=== PATIENT | male | born 1935 | race Caucasian/White ===

== ENCOUNTER 2017-10-11 14:16 | Observation (INO) ==
[2017-10-11] MEDS ORDERED: Sodium Chlor 0.9% Inj 500 ML IV.SIG ONE (14:35)
--- NOTE | 2017-10-11 14:44 | ED ---
HPI General Chief complaint: Syncope Stated complaint: Syncope Time Seen by Provider: 10/11/17 14:20 Source: patient and RN notes reviewed Mode of arrival: EMS Limitations: no limitations History of Present Illness HPI narrative: 82-year-old male presents to the emergency department via EMS for evaluation after a syncopal episode. Patient states he went to work in the [place]. He started to feel dizzy and went and sat down. He then felt better and walked back when he had a syncopal episode. He denies any history of syncope. Patient states he felt lightheaded and dizzy. He reports history of hypertension, atrial fibrillation, "leaky valve". He is on Coumadin. He states that he is using internal heart group. Patient denies any chest pain. No headache. He is unsure if he hit his head. At this time, he denies any symptoms. Moderate severity. Relieving factors: none Exacerbating factors: none Associated symptoms: denies other symptoms Related Data Allergies Allergy/AdvReac Type Severity Reaction Status Date / Time No Known Allergies Allergy Unverified 10/11/17 14:35 Review of Systems ROS: all other systems reviewed are negative PMFSH Medical History Medical History Atrial fibrillation (Acute) Leaky heart valve (Acute) Syncope (Acute) Surgical History Surgical History H/O knee surgery (Acute) Social History Social History Substance History: No History of Abuse Second Hand Smoke Exposure: No Smoking Status: Former smoker How Often Do You Have a Drink Containing Alcohol: 2 to 4 times a month Recent Travel in [facility] within the Last 8 Weeks: No Recent Out of Country Travel within the Last 8 Weeks: No Exam Narrative Exam Narrative: GENERAL: Well-nourished, well-developed elderly male patient, afebrile SKIN: Focused skin assessment warm/dry. No laceration HEAD: Normocephalic. Atraumatic EYES: No scleral icterus. No injection or drainage. PERRLA. EOM intact ENT: Mucosa pink and moist. No erythema or exudates. No uvular edema. No uvular , palatal, or tonsillar deviation. Airway patent. Nasal turbinates appear normal without nasal blood, purulent drainage or septal hematoma. Bilateral tympanic membranes clear without erythema or perforation. NECK: Supple, trachea midline. No JVD or lymphadenopathy. CARDIOVASCULAR: Rhythm is slightly bradycardic with heart rate in the 50s, irregular rhythm without murmurs, gallops, or rubs. RESPIRATORY: Breath sounds equal bilaterally. No accessory muscle use. Lung sounds are clear to auscultation GASTROINTESTINAL: Abdomen soft, non-tender, nondistended. MUSCULOSKELETAL: No cyanosis, or edema. Bilateral upper and lower extremity strength 5/5. All extremities are neurovascularly intact BACK: Nontender without obvious deformity. No CVA tenderness. NEUROLOGICAL: Awake and alert. Cranial nerves II through XII intact. Motor and sensory grossly within normal limits. Five out of 5 muscle strength in all muscle groups. Normal speech. Finger to nose is normal bilaterally. Heel to joe is normal bilaterally. Course Initial Documented Vital Signs Temperature 97.7 F 10/11/17 14:33 Pulse Rate 57 L 10/11/17 14:33 Respiratory Rate 18 10/11/17 14:33 Blood Pressure 118/68 10/11/17 14:33 Pulse Oximetry 96 10/11/17 14:33 Last Documented Vital Signs Temperature 97.7 F 10/11/17 14:33 Pulse Rate 66 10/11/17 14:43 Respiratory Rate 18 10/11/17 14:43 Blood Pressure 114/62 10/11/17 14:43 Pulse Oximetry 97 10/11/17 14:43 Medical Decision Making MDM Narrative Medical decision making narrative: 82-year-old male presents to the emergency department via EMS for evaluation of dizziness and syncopal episode. EKG, CBC, CMP, Magnesium, CK, troponin, PTT, PT/INR, UA, chest x-ray, CT of the brain are ordered and pending. Patient is given 500 mL NS IV bolus. Orthostatic VS are ordered. EKG shows atrial fibrillation, heart rate 64, t wave changes. This was read and interpreted by my attending physician, Dr. Jasso. CBC shows leukocytosis of 11.3. CMP shows BUN 25, creatinine of 1.64. CK is 86. Troponin is less than 0.02. Magnesium is 2.0. PTT is 29.2. PT/INR is 17.1/ 1.7. Chest x-ray shows minimal left basilar airspace disease and associated volume loss likely reflecting atelectasis. CT of the brain shows no acute intracranial abnormality. Patient will be admitted for observation for syncope. Medical Screen Exam Complete: Yes Emergency Medical Condition: Yes Differential Diagnosis Differential Diagnosis: syncope vs. ACS vs. intracranial hemorrhage vs. CVA vs. electrolyte abnormality Lab Data Result diagrams: 10/11/17 15:00 10/11/17 15:00 Lab Results 10/11/17 10/11/17 10/11/17 Range/Units 09:44 15:00 15:00 WBC 11.3 H (4.0-11.0) th/mm3 RBC 3.53 L (4.50-5.90) mil/mm3 Hgb 11.5 L (13.0-17.0) gm/dL Hct 34.2 L (39.0-51.0) % MCV 97.0 (80.0-100.0) fL MCH 32.5 (27.0-34.0) pg MCHC 33.5 (32.0-36.0) % RDW 14.5 (11.6-17.2) % Plt Count 200 (150-450) th/mm3 MPV 8.8 (7.0-11.0) fL Neut % (Auto) 80.3 H (16.0-70.0) % Lymph % (Auto) 9.9 (9.0-44.0) % Mills % (Auto) 8.4 H (0.0-8.0) % Eos % (Auto) 1.1 (0.0-4.0) % Baso % (Auto) 0.3 (0.0-2.0) % Neut # (Auto) 9.1 H (1.8-7.7) th/mm3 Lymph # (Auto) 1.1 (1.0-4.8) th/mm3 Mills # (Auto) 1.0 H (0.0-0.9) th/mm3 Eos # (Auto) 0.1 (0.0-0.4) th/mm3 Baso # (Auto) 0.0 (0.0-0.2) th/mm3 WBC Differential . Differential Comment Auto diff final PT 17.7 H (9.8-11.6) sec INR 1.7 Ratio APTT 29.2 (24.3-30.1) sec Sodium 142 (136-145) meq/L Potassium 4.3 (3.5-5.1) meq/L Chloride 111 H (98-107) meq/L Carbon Dioxide 24.7 (21.0-32.0) meq/L Anion Gap 6 (5-15) meq/L BUN 25 H (7-18) mg/dL Creatinine 1.64 H (0.60-1.30) mg/dL Estimated GFR 41 L (>89) mL/min POC Glucose (68-110) mg/dl Random Glucose 92 (74-106) mg/dL Calcium 8.1 L (8.5-10.1) mg/dL Magnesium 2.0 (1.5-2.5) mg/dL Total Bilirubin 0.2 (0.2-1.0) mg/dL AST 21 (15-37) U/L ALT 21 (12-78) U/L Alkaline Phosphatase 63 (45-117) U/L Total Creatine Kinase (39-308) U/L Troponin I Less than 0.02 L (0.02-0.05) ng/mL Total Protein 6.9 (6.4-8.2) g/dL Albumin 3.4 (3.4-5.0) g/dL 10/11/17 10/11/17 Range/Units 15:00 15:12 WBC (4.0-11.0) th/mm3 RBC (4.50-5.90) mil/mm3 Hgb (13.0-17.0) gm/dL Hct (39.0-51.0) % MCV (80.0-100.0) fL MCH (27.0-34.0) pg MCHC (32.0-36.0) % RDW (11.6-17.2) % Plt Count (150-450) th/mm3 MPV (7.0-11.0) fL Neut % (Auto) (16.0-70.0) % Lymph % (Auto) (9.0-44.0) % Mills % (Auto) (0.0-8.0) % Eos % (Auto) (0.0-4.0) % Baso % (Auto) (0.0-2.0) % Neut # (Auto) (1.8-7.7) th/mm3 Lymph # (Auto) (1.0-4.8) th/mm3 Mills # (Auto) (0.0-0.9) th/mm3 Eos # (Auto) (0.0-0.4) th/mm3 Baso # (Auto) (0.0-0.2) th/mm3 WBC Differential Differential Comment PT (9.8-11.6) sec INR Ratio APTT (24.3-30.1) sec Sodium (136-145) meq/L Potassium (3.5-5.1) meq/L Chloride (98-107) meq/L Carbon Dioxide (21.0-32.0) meq/L Anion Gap (5-15) meq/L BUN (7-18) mg/dL Creatinine (0.60-1.30) mg/dL Estimated GFR (>89) mL/min POC Glucose 112 H (68-110) mg/dl Random Glucose (74-106) mg/dL Calcium (8.5-10.1) mg/dL Magnesium (1.5-2.5) mg/dL Total Bilirubin (0.2-1.0) mg/dL AST (15-37) U/L ALT (12-78) U/L Alkaline Phosphatase (45-117) U/L Total Creatine Kinase 86 (39-308) U/L Troponin I (0.02-0.05) ng/mL Total Protein (6.4-8.2) g/dL Albumin (3.4-5.0) g/dL Imaging Data Radiologist's impression: Chest X-Ray 10/11/17 14:35 CONCLUSION: 1. Minimal left basilar airspace disease and associated volume loss likely reflecting atelectasis. Head CT 10/11/17 14:35 CONCLUSION: 1. Senescent changes with moderate periventricular ischemic white matter demyelination. 2. No acute intracranial abnormality. . Discharge Plan Discharge Disposition Patient Disposition: 30 Still Patient Discharge Details Diagnosis: Syncope Physicians Team ED Provider: Orville Jasso ED Midlevel Provider: Brunilda Mcgraw Status ED Status: With Doctor
[2017-10-11 15:20] LABS: Baso % (Auto) 0.3 % (0.0-2.0); Eos # (Auto) 0.1 th/mm3 (0.0-0.4); Eos % (Auto) 1.1 % (0.0-4.0); Hematocrit 34.2 % (39.0-51.0); Hemoglobin 11.5 gm/dL (13.0-17.0); Lymph # (Auto) 1.1 th/mm3 (1.0-4.8); Lymph % (Auto) 9.9 % (9.0-44.0); Mean Corpuscular HGB Conc 33.5 % (32.0-36.0); Mean Corpuscular Hemoglobin 32.5 pg (27.0-34.0); Mean Platelet Volume 8.8 fL (7.0-11.0); Mono % (Auto) 8.4 % (0.0-8.0); Neut # (Auto) 9.1 th/mm3 (1.8-7.7); Neut % (Auto) 80.3 % (16.0-70.0); Platelet Count 200 th/mm3 (150-450); Red Blood Count 3.53 mil/mm3 (4.50-5.90); Red Cell Distribution Width 14.5 % (11.6-17.2); White Blood Count 11.3 th/mm3 (4.0-11.0)
--- NOTE | 2017-10-11 15:24 | XR ---
EXAM DATE: 10/11/2017 2:59 PM EDT AGE/SEX: 82 years / Male INDICATIONS: Syncope. CLINICAL DATA: This is the patient's initial encounter. Patient reports that signs and symptoms have been present for 1 day and indicates a pain score of 0/10. MEDICAL/SURGICAL HISTORY: . Patient diagnosed with A fib and leaky heart valve ten years ago. P atient takes Warfarin and a medication to lower heart rate taken every 24 hours. (Patient cannot shawn mber the name of the drug) Patient fainted today but slumped to the floor with no injury. No prior l maddi issues, non smoker. None. COMPARISON: No prior exams available for comparison. FINDINGS: Minimal left basilar airspace disease and subtle elevation the left hemidiaphragm. The cardiomediasti nal contours are unremarkable. Osseous structures are intact. CONCLUSION: 1. Minimal left basilar airspace disease and associated volume loss likely reflecting atelectasis. Electronically signed by: Barney Parker MD 10/11/2017 3:23 PM EDT
[2017-10-11 15:27] LABS: Activated Partial Thrombo Time 29.2 sec (24.3-30.1); INR 1.7 Ratio; Prothrombin Time 17.7 sec (9.8-11.6)
[2017-10-11 15:38] LABS: Alanine Aminotransferase 21 U/L (12-78); Albumin 3.4 g/dL (3.4-5.0); Anion Gap 6 meq/L (5-15); Aspartate Aminotransferase 21 U/L (15-37); Blood Urea Nitrogen 25 mg/dL (7-18); Calcium 8.1 mg/dL (8.5-10.1); Carbon Dioxide 24.7 meq/L (21.0-32.0); Chloride 111 meq/L (98-107); Glomerular Filtration Rate 41 mL/min (>89); Glucose,Random 92 mg/dL (74-106); Potassium 4.3 meq/L (3.5-5.1); Sodium 142 meq/L (136-145)
[2017-10-11 15:42] LABS: Alkaline Phosphatase 63 U/L (45-117); Total Protein 6.9 g/dL (6.4-8.2)
--- NOTE | 2017-10-11 16:23 | CT ---
EXAM DATE: 10/11/2017 4:05 PM EDT AGE/SEX: 82 years / Male INDICATIONS: Possible syncopal episode today. CLINICAL DATA: This is the patient's initial encounter. Patient reports that signs and symptoms have been present for 1 day and indicates a pain score of 3/10. MEDICAL/SURGICAL HISTORY: None. None. RADIATION DOSE: 34.52 CTDI (mGy) COMPARISON: No prior exams available for comparison. TECHNIQUE: CT of the head without contrast. Using automated exposure control and adjustment of the mA and/or kV according to patient size, radiation dose was kept as low as reasonably achievable to ob tain optimal diagnostic quality images. DICOM format image data is available electronically for revi ew and comparison. FINDINGS: Cerebrum: Moderate diffuse cerebral atrophy. The ventricles are normal for degree of atrophy. Mild-t o-moderate periventricular white matter hypodensities. No evidence of midline shift, mass lesion, hem orrhage or acute infarction. No extraaxial fluid collections are seen. Posterior Fossa: The cerebellum and brainstem are intact. The 4th ventricle is midline. The cerebe llopontine angle is unremarkable. Extracranial: The visualized portion of the orbits is intact. Skull: The calvaria is intact. No evidence of skull fracture. CONCLUSION: 1. Senescent changes with moderate periventricular ischemic white matter demyelination. 2. No acute intracranial abnormality. . Electronically signed by: Barney Parker MD 10/11/2017 4:22 PM EDT
[2017-10-11] MEDS ORDERED: Warfarin Consult Pharmacy OTHER ONE (17:58)
--- NOTE | 2017-10-11 18:05 | P.HP ---
History of Present Illness Service: [facility] Primary Care Physician: Dr graham Chief Complaint: "Dizziness, passed out" History of Present Illness: Patient is an 82-year-old male with past medical history of atrial fibrillation on Coumadin, HTN, HLD, "leaky valve" who initially came by ambulance status post syncope. 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 Reports that he was not feeling well and had sat down for a few minutes. States that after sitting down he felt a lot better and thinking that he is able to continue with his work. He was standing and he felt dizzy, after which he woke up on the ground. He also reported vomiting while he was laying on the floor. Does not know if he hit his head. Patient states that he has no change in any of his medications. States that he takes a medication to slow down his heart rate. States that previously he had syncopal episode wherein his heart rate went down to the 20s because he took the medication twice. States the facility is in air conditioner. However he also reports that yesterday he was working in his yard and has not drink enough water throughout the day. Patient states that he has been drinking coffee all day without drinking water. Otherwise, states he is feeling better now. Denies numbness and tingling of extremities. Denies visual changes, unilateral weakness. Denies pain and discomfort. Denies SOB/ dyspnea. Denies chest pain, palpitations, headaches, dizziness. Denies fevers, chills, n/v/d. Denies dysuria. CT scan of the head showed senescent changes with moderate periventricular ischemic white matter demyelination. No acute intracranial abnormality Chest x-ray showed minimal left basilar airspace disease and associated volume loss likely reflecting atelectasis. EKG reviewed atrial fibrillation, rate of 64. QTc 310 Initial vital signs pulse rate of 57, 118/68, 97.7, O2 sat 96% - Diagnosis (1) Syncope Review of Systems All other systems reviewed negative except as stated in [facility] - History History Provided By: Patient, Insole Rasper / EMT - Medical History Medical History: Medical History (Last Updated 10/11/17 @ 17:39 by DYLAN Tim) Atrial fibrillation HLD (hyperlipidemia) HTN (hypertension) Leaky heart valve Syncope - Surgical History Surgical History: Surgical History (Last Updated 10/11/17 @ 14:41 by Kaelyn Baez H/O knee surgery - Family History Family History: Family History (Last Updated 10/11/17 @ 17:40 by DYLAN Tim) Other Adopted child - Tobacco History Second Hand Smoke Exposure: No Tobacco Use In Past 30 Days: No Smoking Status: Former smoker - Alcohol History How Often Do You Have a Drink Containing Alcohol: 2 to 4 times a month - Substance Use History Substance History: No History of Abuse - Travel History History of Recent Travel: No Recent Travel in the [place] Within the Last 8 Weeks: No Recent Travel Out of the Country Within the Last 8 Weeks: No - Immunization History Tetanus Immunization: Unsure Hx Influenza Vaccine This Season: Yes Medications and Allergies Allergies Allergy/AdvReac Type Severity Reaction Status Date / Time No Known Allergies Allergy Verified 10/11/17 18:03 Home Medications Medication Instructions Recorded Confirmed Type diltiazem HCl PO DAILY 10/11/17 History lisinopril PO DAILY 10/11/17 History lovastatin PO DAILY 10/11/17 History warfarin PO DAILY 10/11/17 History Exam Vital signs: Vital Signs 10/11/17 14:33 10/11/17 14:35 10/11/17 14:43 Temperature 97.7 F Pulse Rate 57 L 66 Respiratory Rate 18 18 Blood Pressure 118/68 114/62 Pulse Oximetry 96 96 97 Intake & Output 10/10/17 10/11/17 10/11/17 18:59 06:59 18:59 Weight 77.111 kg Narrative: GENERAL: This is a well-nourished, well-developed patient, in no apparent distress. SKIN: Warm and dry. HEENT: Normocephalic. Pupils equal round and reactive. Nose without bleeding. Airway patent. NECK: Trachea midline. No JVD. Supple. No murmur/bruit. CARDIOVASCULAR: Regular rate and rhythm without murmurs, gallops, or rubs. RESPIRATORY: Clear to auscultation. No wheezes, rales, or rhonchi. GASTROINTESTINAL: Abdomen soft, non-tender, nondistended. Bowel Sounds normoactive x4. MUSCULOSKELETAL: Extremities without clubbing, cyanosis, or edema. NEUROLOGICAL: Awake and alert. Oriented to time, place, person. No focal neuro deficit. Moves all extremities. Normal speech. Results - Labs CBC & Chem 7: 10/11/17 15:00 10/11/17 15:00 Labs: Laboratory Results - last 24 hr 10/11/17 10/11/17 10/11/17 09:44 15:00 15:00 WBC 11.3 H RBC 3.53 L Hgb 11.5 L Hct 34.2 L MCV 97.0 MCH 32.5 MCHC 33.5 RDW 14.5 Plt Count 200 MPV 8.8 Neut % (Auto) 80.3 H Lymph % (Auto) 9.9 Robertson % (Auto) 8.4 H Eos % (Auto) 1.1 Baso % (Auto) 0.3 Neut # (Auto) 9.1 H Lymph # (Auto) 1.1 Robertson # (Auto) 1.0 H Eos # (Auto) 0.1 Baso # (Auto) 0.0 WBC Differential . Differential Comment Auto diff final PT 17.7 H INR 1.7 APTT 29.2 Sodium 142 Potassium 4.3 Chloride 111 H Carbon Dioxide 24.7 Anion Gap 6 BUN 25 H Creatinine 1.64 H Estimated GFR 41 L POC Glucose Random Glucose 92 Calcium 8.1 L Magnesium 2.0 Total Bilirubin 0.2 AST 21 ALT 21 Alkaline Phosphatase 63 Total Creatine Kinase Troponin I Less than 0.02 L Total Protein 6.9 Albumin 3.4 10/11/17 10/11/17 15:00 15:12 WBC RBC Hgb Hct MCV MCH MCHC RDW Plt Count MPV Neut % (Auto) Lymph % (Auto) Robertson % (Auto) Eos % (Auto) Baso % (Auto) Neut # (Auto) Lymph # (Auto) Robertson # (Auto) Eos # (Auto) Baso # (Auto) WBC Differential Differential Comment PT INR APTT Sodium Potassium Chloride Carbon Dioxide Anion Gap BUN Creatinine Estimated GFR POC Glucose 112 H Random Glucose Calcium Magnesium Total Bilirubin AST ALT Alkaline Phosphatase Total Creatine Kinase 86 Troponin I Total Protein Albumin - Imaging Impressions Chest X-Ray 10/11/17 14:35 CONCLUSION: 1. Minimal left basilar airspace disease and associated volume loss likely reflecting atelectasis. Head CT 10/11/17 14:35 CONCLUSION: 1. Senescent changes with moderate periventricular ischemic white matter demyelination. 2. No acute intracranial abnormality. . Caprini VTE Risk Assessment Caprini VTE Risk Assessment: Moderate/High Risk (score >= 2) Caprini Risk Assessment Model: Point Value = 1 Point Value = 2 Point Value = 3 Point Value = 5 Age 41-60 Minor surgery BMI > 25 kg/m2 Swollen legs Varicose veins or History of unexplained or recurrent spontaneous Oral contraceptives or hormone replacement Sepsis (< 1 month) Serious lung disease, including pneumonia (< 1 month) Abnormal pulmonary function Acute myocardial infarction Congestive heart failure (< 1 month) History of inflammatory bowel disease Medical patient at bed rest Age 61-74 Arthroscopic surgery Major open surgery (> 45 min) Laparoscopic surgery (> 45 min) Malignancy Confined to bed (> 72 hours) Immobilizing plaster cast Central venous access Age >= 75 History of VTE Family history of VTE Factor V Leiden Prothrombin [id number] Lupus anticoagulant Anticardiolipin antibodies Elevated serum homocysteine Heparin-induced thrombocytopenia Other congenital or acquired thrombophilia Stroke (< 1 month) Elective arthroplasty Hip, pelvis, or leg fracture Acute spinal cord injury (< 1 month) Prophylaxis Regimen: Total Risk Factor Score Risk Level Prophylaxis Regimen 0-1 Low Early ambulation 2 Moderate Order ONE of the following: *Sequential Compression Device (SCD) *Heparin 5000 units SQ BID 3-4 Higher Order ONE of the following medications: *Heparin 5000 units SQ TID *Enoxaparin/Lovenox 40 mg SQ daily (WT < 150 kg, CrCl > 30 mL/min) *Enoxaparin/Lovenox 30 mg SQ daily (WT < 150 kg, CrCl > 10-29 mL/min) *Enoxaparin/Lovenox 30 mg SQ BID (WT < 150 kg, CrCl > 30 mL/min) AND/OR *Sequential Compression Device (SCD) 5 or more Highest Order ONE of the following medications: *Heparin 5000 units SQ TID (Preferred with Epidurals) *Enoxaparin/Lovenox 40 mg SQ daily (WT < 150 kg, CrCl > 30 mL/min) *Enoxaparin/Lovenox 30 mg SQ daily (WT < 150 kg, CrCl > 10-29 mL/min) *Enoxaparin/Lovenox 30 mg SQ BID (WT < 150 kg, CrCl > 30 mL/min) AND *Sequential Compression Device (SCD) Assessment and Plan - Assessment (1) Syncope Code(s): R55 - Syncope and collapse Status: Acute - Plan Patient is an 82-year-old male with past medical history of atrial fibrillation on Coumadin, HTN, HLD, "leaky valve" who initially came by ambulance status post syncope. Syncope, acute R/O ACS, R/O TIA or CVA -CT scan of the head showed senescent changes with moderate periventricular ischemic white matter demyelination. No acute intracranial abnormality -Chest x-ray showed minimal left basilar airspace disease and associated volume loss likely reflecting atelectasis. -EKG reviewed atrial fibrillation, rate of 64. QTc 310 -no QT prolongation noted -Initial vital signs pulse rate of 57, 118/68, 97.7, O2 sat 96% -On exam HR 50-53, slows down to 49. He took his Diltiazem today. Combination of dehydration and low HR can cause syncopal episode. -Labs reviewed, BUN/[employer] elevated, possible dehydration, CK 86, H/H 11.5/34.2 -IVF for hydration -Repeat labs in am, check carotid ultrasound, check orthostatic BP -He follows with cardiology Dr. Garrido with appointment next week. States last ECHO done 6 mos ago, no indicated problems -Neuro consult if indicated. No neuro deficits. Acute kidney injury -Possibly secondary to dehydration not enough fluids yesterday was out all day for yardwork. Hold off on lisinopril for now -Avoid nephrotoxins -IV fluid hydration as above -Monitor renal indicis A. fib -Hold Cardizem for now, may possibly need to decrease dose on DC -Monitor heart rate, on exam patient is bradycardic -Continue Coumadin, monitor INR HTN HLD -Blood pressure within normal limits, patient is just on lisinopril 2.5 mg from home -Hold off lisinopril, continue lovastatin -Monitor BP trend DVT prop Coumadin Code Status: Full code Discussed Condition With: Patient, , nursing, Dr. Santana Discharge Planning: Plan to DC home when clinically improved (1) Syncope Qualifiers: Syncope type: unspecified Qualified Code(s): R55 - Syncope and collapse
[2017-10-11] MEDS ORDERED: Warfarin Consult Pharmacy OTHER SCH (18:15)
[2017-10-11] MEDS: Sod Chloride 0.9% Inj 1,000 ML IV.CONT SCH (18:30)
[2017-10-12] MEDS: Sod Chloride 0.9% Inj 1,000 ML IV.CONT SCH (06:18)
[2017-10-12 07:55] LABS: Baso % (Auto) 0.5 % (0.0-2.0); Eos # (Auto) 0.2 th/mm3 (0.0-0.4); Eos % (Auto) 2.8 % (0.0-4.0); Hematocrit 31.6 % (39.0-51.0); Hemoglobin 10.7 gm/dL (13.0-17.0); Lymph # (Auto) 1.5 th/mm3 (1.0-4.8); Lymph % (Auto) 21.6 % (9.0-44.0); Mean Corpuscular HGB Conc 33.9 % (32.0-36.0); Mean Corpuscular Hemoglobin 32.8 pg (27.0-34.0); Mean Corpuscular Volume 96.9 fL (80.0-100.0); Mean Platelet Volume 8.3 fL (7.0-11.0); Mono # (Auto) 0.7 th/mm3 (0.0-0.9); Mono % (Auto) 9.6 % (0.0-8.0); Neut # (Auto) 4.6 th/mm3 (1.8-7.7); Neut % (Auto) 65.5 % (16.0-70.0); Platelet Count 184 th/mm3 (150-450); Red Blood Count 3.26 mil/mm3 (4.50-5.90)
[2017-10-12 08:04] LABS: INR 1.8 Ratio; Prothrombin Time 18.4 sec (9.8-11.6)
[2017-10-12 08:26] LABS: Calcium 8.2 mg/dL (8.5-10.1); Carbon Dioxide 23.4 meq/L (21.0-32.0); Potassium 4.3 meq/L (3.5-5.1)
[2017-10-12 08:59] VITALS: O2SAT 97
[2017-10-12] MEDS ORDERED: dilTIAZem CD 180 MG Capsule PO SCH (11:15)
--- NOTE | 2017-10-12 11:54 | US ---
EXAM DATE: 10/12/2017 11:49 AM EDT AGE/SEX: 82 years / Male INDICATIONS: Syncope. CLINICAL DATA: This is the patient's initial encounter. Patient reports that signs and symptoms have been present for 1 day and indicates a pain score of 0/10. MEDICAL/SURGICAL HISTORY: Hypertension. Hyperlipidemia. Leaky heart valve. A-fib. . Knee surge ry. COMPARISON: No prior exams available for comparison. VELOCITY PARAMETERS: ICA/CCA Ratio: Right 0.6 , Left 1.3 ICA: Right 63 cm/sec, Left 85 cm/sec CCA: Right 99 cm/sec, Left 64 cm/sec ECA: Right 90 cm/sec, Left 80 cm/sec Vertebral: Right 33 cm/sec antegrade, Left 49 cm/sec antegrade FINDINGS: Right Carotid: Mild arteriosclerotic plaque is visualized.The waveforms are within normal limits. Left Carotid: Mild arteriosclerotic plaque is visualized. The waveforms are within normal limits. Other: None. CONCLUSION: No evidence of flow-limiting carotid stenosis. Electronically signed by: Siva Avendano MD 10/12/2017 11:53 AM EDT
[2017-10-12 12:05] VITALS: BP 150/95; RESP 16; TEMP 98.1
[2017-10-12 13:01] VITALS: PULSE 95
--- NOTE | 2017-10-12 13:06 | P.PN ---
Subjective Interval history: Patient is seen sitting up in bed. He tells me that he is feeling good with no concerns. He has been able to get up to use the commode and sit in the chair without any episodes of dizziness or syncope. No changes in vision or headache. No chest pain or shortness of breath. No nausea vomiting or diarrhea. He has tolerated his meals well. He feels that he got dehydrated as he had been only drinking coffee and tea. Physical Exam Vital signs: Vital Signs 10/11/17 14:33 10/11/17 14:35 10/11/17 14:43 Temperature 97.7 F Pulse Rate 57 L 66 Respiratory Rate 18 18 Blood Pressure 118/68 114/62 Pulse Oximetry 96 96 97 10/11/17 17:00 10/11/17 18:00 10/11/17 20:00 Temperature 98.0 F Pulse Rate 58 L 65 72 Respiratory Rate 23 20 16 Blood Pressure 109/56 L 116/69 131/71 Pulse Oximetry 98 10/12/17 00:00 10/12/17 04:00 10/12/17 08:00 Temperature 98.3 F 98.2 F 97.9 F Pulse Rate 84 87 95 H Respiratory Rate 15 15 12 Blood Pressure 116/64 137/75 142/95 H Pulse Oximetry 96 95 97 10/12/17 10:37 10/12/17 12:00 Temperature 98.1 F Pulse Rate 98 H 112 H Respiratory Rate 16 Blood Pressure 150/95 H Pulse Oximetry 97 Intake & Output 10/11/17 10/12/17 10/12/17 18:59 06:59 18:59 Intake Total 1500 / 1500 Output Total 800 / 800 Balance 700 / 700 Weight 77.111 kg 77.111 kg Intake: IV 1500 / 1500 NS Inj 1,000 ML @ 100 mls/hr IV 1000 / 1000 .CONT .Q10H COREY Rx#:[id number] NS Inj 500 ML @ Wide Open IV. 500 / 500 SIG BOLUS ONE Rx#:[id number] Output: Urine 800 / 800 Other: Date of Last Bowel Movement 10/11/17 Weight On Admission 77.11 kg Narrative: GENERAL: Well-nourished, well-developed adult male in no obvious distress. SKIN: Warm and dry. HEAD: Atraumatic. Normocephalic. CARDIOVASCULAR: Regular rate and rhythm. RESPIRATORY: No accessory muscle use. Clear to auscultation. Breath sounds equal bilaterally. GASTROINTESTINAL: Abdomen soft, non-tender, non-distended. Positive bowel sounds. MUSCULOSKELETAL: Extremities without clubbing, cyanosis, or edema. No obvious deformities. NEUROLOGICAL: Awake and alert. No obvious cranial nerve deficits. Motor grossly within normal limits. Normal speech. PSYCHIATRIC: Appropriate mood and affect; insight and judgment good. Results - Labs CBC & Chem 7: 10/12/17 07:30 10/12/17 07:30 Laboratory Results - last 24 hr 10/11/17 10/11/17 10/11/17 09:44 15:00 15:00 WBC 11.3 H RBC 3.53 L Hgb 11.5 L Hct 34.2 L MCV 97.0 MCH 32.5 MCHC 33.5 RDW 14.5 Plt Count 200 MPV 8.8 Neut % (Auto) 80.3 H Lymph % (Auto) 9.9 [place] % (Auto) 8.4 H Eos % (Auto) 1.1 Baso % (Auto) 0.3 Neut # (Auto) 9.1 H Lymph # (Auto) 1.1 [place] # (Auto) 1.0 H Eos # (Auto) 0.1 Baso # (Auto) 0.0 WBC Differential . Differential Comment Auto diff final PT 17.7 H INR 1.7 APTT 29.2 Sodium 142 Potassium 4.3 Chloride 111 H Carbon Dioxide 24.7 Anion Gap 6 BUN 25 H Creatinine 1.64 H Estimated GFR 41 L POC Glucose Random Glucose 92 Calcium 8.1 L Magnesium 2.0 Total Bilirubin 0.2 AST 21 ALT 21 Alkaline Phosphatase 63 Total Creatine Kinase Troponin I Less than 0.02 L Total Protein 6.9 Albumin 3.4 10/11/17 10/11/17 10/12/17 15:00 15:12 07:30 WBC RBC Hgb Hct MCV MCH MCHC RDW Plt Count MPV Neut % (Auto) Lymph % (Auto) [place] % (Auto) Eos % (Auto) Baso % (Auto) Neut # (Auto) Lymph # (Auto) [place] # (Auto) Eos # (Auto) Baso # (Auto) WBC Differential Differential Comment PT 18.4 H INR 1.8 APTT Sodium Potassium Chloride Carbon Dioxide Anion Gap BUN Creatinine Estimated GFR POC Glucose 112 H Random Glucose Calcium Magnesium Total Bilirubin AST ALT Alkaline Phosphatase Total Creatine Kinase 86 Troponin I Total Protein Albumin 10/12/17 10/12/17 07:30 07:30 WBC 7.0 RBC 3.26 L Hgb 10.7 L Hct 31.6 L MCV 96.9 MCH 32.8 MCHC 33.9 RDW 14.0 Plt Count 184 MPV 8.3 Neut % (Auto) 65.5 Lymph % (Auto) 21.6 [place] % (Auto) 9.6 H Eos % (Auto) 2.8 Baso % (Auto) 0.5 Neut # (Auto) 4.6 Lymph # (Auto) 1.5 [place] # (Auto) 0.7 Eos # (Auto) 0.2 Baso # (Auto) 0.0 WBC Differential . Differential Comment Auto diff final PT INR APTT Sodium 144 Potassium 4.3 Chloride 112 H Carbon Dioxide 23.4 Anion Gap 9 BUN 23 H Creatinine 1.36 H Estimated GFR 50 L POC Glucose Random Glucose 88 Calcium 8.2 L Magnesium Total Bilirubin AST ALT Alkaline Phosphatase Total Creatine Kinase Troponin I Total Protein Albumin - Imaging Impressions Chest X-Ray 10/11/17 14:35 CONCLUSION: 1. Minimal left basilar airspace disease and associated volume loss likely reflecting atelectasis. Head CT 10/11/17 14:35 CONCLUSION: 1. Senescent changes with moderate periventricular ischemic white matter demyelination. 2. No acute intracranial abnormality. . Carotid Doppler Study 10/12/17 00:00 CONCLUSION: No evidence of flow-limiting carotid stenosis. Assessment and Plan - Assessment (1) Syncope Code(s): R55 - Syncope and collapse Status: Acute - Plan Patient is an 82-year-old male with past medical history of atrial fibrillation on Coumadin, HTN, HLD, "leaky valve" who initially came by ambulance status post syncope. Syncope, acute R/O ACS, R/O TIA or CVA -CT scan of the head showed senescent changes with moderate periventricular ischemic white matter demyelination. No acute intracranial abnormality -Chest x-ray showed minimal left basilar airspace disease and associated volume loss likely reflecting atelectasis. -EKG reviewed atrial fibrillation, rate of 64. 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 -carotid ultrasound & orthostatic BP - negative; no concerns -He follows with cardiology Dr. Garrido with appointment next week. States last ECHO done 6 mos ago, no indicated problems -Neuro consult if indicated. No neuro deficits. Acute kidney injury -Possibly secondary to dehydration not enough fluids yesterday was out all day for yardwork. Hold off on lisinopril for now -Avoid nephrotoxins -IV fluid hydration as above -Monitor renal indicis A. fib -Restart calcium as heart rate is now over 100 -Continue Coumadin, monitor INR HTN HLD -Blood pressure within normal limits, patient is just on lisinopril 2.5 mg from home -Hold off lisinopril, continue lovastatin -Monitor BP trend (1) Syncope Qualifiers: Syncope type: unspecified Qualified Code(s): R55 - Syncope and collapse
--- NOTE | 2017-10-12 13:15 | P.DS ---
Date of admission: 10/11/17 17:15 Primary care physician: Clifford Ferraro Attending physician on discharge: Braeden Najera Anticipated date of discharge: 10/12/17 Brief History from admission: Patient is an 82-year-old male with past medical history of atrial fibrillation on Coumadin, HTN, HLD, "leaky valve" who initially came by ambulance status post syncope. 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 Reports that he was not feeling well and had sat down for a few minutes. States that after sitting down he felt a lot better and thinking that he is able to continue with his work. He was standing and he felt dizzy, after which he woke up on the ground. He also reported vomiting while he was laying on the floor. Does not know if he hit his head. Patient states that he has no change in any of his medications. States that he takes a medication to slow down his heart rate. States that previously he had syncopal episode wherein his heart rate went down to the 20s because he took the medication twice. States the facility is in air conditioner. However he also reports that yesterday he was working in his yard and has not drink enough water throughout the day. Patient states that he has been drinking coffee all day without drinking water. Otherwise, states he is feeling better now. Denies numbness and tingling of extremities. Denies visual changes, unilateral weakness. Denies pain and discomfort. Denies SOB/ dyspnea. Denies chest pain, palpitations, headaches, dizziness. Denies fevers, chills, n/v/d. Denies dysuria. CT scan of the head showed senescent changes with moderate periventricular ischemic white matter demyelination. No acute intracranial abnormality Chest x-ray showed minimal left basilar airspace disease and associated volume loss likely reflecting atelectasis. EKG reviewed atrial fibrillation, rate of 64. QTc 310 Initial vital signs pulse rate of 57, 118/68, 97.7, O2 sat 96% DS: Diagnosis - Discharge Diagnosis (1) Syncope Status: Resolved (2) Dehydration Status: Resolved DS: Summary Hospital Course: Patient is an 82-year-old male with past medical history of atrial fibrillation on Coumadin, HTN, HLD, "leaky valve" who initially came by ambulance status post syncope. CT of the head showed no acute intracranial abnormality. EKG revealed A. fib. Patient has a long-standing history of A. fib which he has been successfully controlling with Coumadin. Initial vital signs were bradycardia with some mild hypotension. BUN and creatinine elevated. IV rehydration was provided and labs improved. Carotid ultrasound and orthopedic BP were not concerning. He does have a follow-up appointment with cardiology next week. States that last echo was done 6 months ago with no indicated problems. Neuro was not consulted due to lack of neuro deficits. Overall impression was syncopal episode due to dehydration. - Time Spent with Patient Total time spent providing and/or coordinating discharge services: Less than 30 minutes - Quality: VTE Deep Vein Thrombosis/Pulmonary Embolism Present on Admission: No Exam Vital signs: Vital Signs 10/11/17 14:33 10/11/17 14:35 10/11/17 14:43 Temperature 97.7 F Pulse Rate 57 L 66 Respiratory Rate 18 18 Blood Pressure 118/68 114/62 Pulse Oximetry 96 96 97 10/11/17 17:00 10/11/17 18:00 10/11/17 20:00 Temperature 98.0 F Pulse Rate 58 L 65 72 Respiratory Rate 23 20 16 Blood Pressure 109/56 L 116/69 131/71 Pulse Oximetry 98 10/12/17 00:00 10/12/17 04:00 10/12/17 08:00 Temperature 98.3 F 98.2 F 97.9 F Pulse Rate 84 87 95 H Respiratory Rate 15 15 12 Blood Pressure 116/64 137/75 142/95 H Pulse Oximetry 96 95 97 10/12/17 10:37 10/12/17 12:00 10/12/17 12:55 Temperature 98.1 F Pulse Rate 98 H 112 H 95 H Respiratory Rate 16 Blood Pressure 150/95 H Pulse Oximetry 97 Intake & Output 10/11/17 10/12/17 10/12/17 18:59 06:59 18:59 Intake Total 1500 / 1500 Output Total 800 / 800 Balance 700 / 700 Weight 77.111 kg 77.111 kg Intake: IV 1500 / 1500 NS Inj 1,000 ML @ 100 mls/hr IV 1000 / 1000 .CONT .Q10H COREY Rx#:[id number] NS Inj 500 ML @ Wide Open IV. 500 / 500 SIG BOLUS ONE Rx#:[id number] Output: Urine 800 / 800 Other: Date of Last Bowel Movement 10/11/17 Weight On Admission 77.11 kg Narrative: GENERAL: Well-nourished, well-developed adult male in no obvious distress. SKIN: Warm and dry. HEAD: Atraumatic. Normocephalic. CARDIOVASCULAR: Regular rate and rhythm. RESPIRATORY: No accessory muscle use. Clear to auscultation. Breath sounds equal bilaterally. GASTROINTESTINAL: Abdomen soft, non-tender, non-distended. Positive bowel sounds. MUSCULOSKELETAL: Extremities without clubbing, cyanosis, or edema. No obvious deformities. NEUROLOGICAL: Awake and alert. No obvious cranial nerve deficits. Motor grossly within normal limits. Normal speech. PSYCHIATRIC: Appropriate mood and affect; insight and judgment good. Results Procedures completed during hospitalization: none Labs on day of discharge: Labs from last 24 hours 10/12/17 10/12/17 10/12/17 07:30 07:30 07:30 WBC 7.0 RBC 3.26 L Hgb 10.7 L Hct 31.6 L MCV 96.9 MCH 32.8 MCHC 33.9 RDW 14.0 Plt Count 184 MPV 8.3 Neut % (Auto) 65.5 Lymph % (Auto) 21.6 [place] % (Auto) 9.6 H Eos % (Auto) 2.8 Baso % (Auto) 0.5 Neut # (Auto) 4.6 Lymph # (Auto) 1.5 [place] # (Auto) 0.7 Eos # (Auto) 0.2 Baso # (Auto) 0.0 WBC Differential . Differential Comment Auto diff final PT 18.4 H INR 1.8 APTT Sodium 144 Potassium 4.3 Chloride 112 H Carbon Dioxide 23.4 Anion Gap 9 BUN 23 H Creatinine 1.36 H Estimated GFR 50 L POC Glucose Random Glucose 88 Calcium 8.2 L Magnesium Total Bilirubin AST ALT Alkaline Phosphatase Total Creatine Kinase Troponin I Total Protein Albumin 10/11/17 10/11/17 10/11/17 15:12 15:00 15:00 WBC RBC Hgb Hct MCV MCH MCHC RDW Plt Count MPV Neut % (Auto) Lymph % (Auto) [place] % (Auto) Eos % (Auto) Baso % (Auto) Neut # (Auto) Lymph # (Auto) [place] # (Auto) Eos # (Auto) Baso # (Auto) WBC Differential Differential Comment PT INR APTT Sodium 142 Potassium 4.3 Chloride 111 H Carbon Dioxide 24.7 Anion Gap 6 BUN 25 H Creatinine 1.64 H Estimated GFR 41 L POC Glucose 112 H Random Glucose 92 Calcium 8.1 L Magnesium 2.0 Total Bilirubin 0.2 AST 21 ALT 21 Alkaline Phosphatase 63 Total Creatine Kinase 86 Troponin I Less than 0.02 L Total Protein 6.9 Albumin 3.4 10/11/17 10/11/17 15:00 09:44 WBC 11.3 H RBC 3.53 L Hgb 11.5 L Hct 34.2 L MCV 97.0 MCH 32.5 MCHC 33.5 RDW 14.5 Plt Count 200 MPV 8.8 Neut % (Auto) 80.3 H Lymph % (Auto) 9.9 [place] % (Auto) 8.4 H Eos % (Auto) 1.1 Baso % (Auto) 0.3 Neut # (Auto) 9.1 H Lymph # (Auto) 1.1 [place] # (Auto) 1.0 H Eos # (Auto) 0.1 Baso # (Auto) 0.0 WBC Differential . Differential Comment Auto diff final PT 17.7 H INR 1.7 APTT 29.2 Sodium Potassium Chloride Carbon Dioxide Anion Gap BUN Creatinine Estimated GFR POC Glucose Random Glucose Calcium Magnesium Total Bilirubin AST ALT Alkaline Phosphatase Total Creatine Kinase Troponin I Total Protein Albumin - Impressions ITS Impressions Chest X-Ray 10/11/17 14:35 CONCLUSION: 1. Minimal left basilar airspace disease and associated volume loss likely reflecting atelectasis. Head CT 10/11/17 14:35 CONCLUSION: 1. Senescent changes with moderate periventricular ischemic white matter demyelination. 2. No acute intracranial abnormality. . Carotid Doppler Study 10/12/17 00:00 CONCLUSION: No evidence of flow-limiting carotid stenosis. Discharge Plan - Discharge Disposition Patient Disposition: 01 Discharge Home - Discharge Condition Condition: Stable - Discharge Order Discharge Orders: Discharge Order (Routine); Ordered 10/12/17 Ordered By: Sakina Gambino - Physicians Team Attending Provider: Braeden Najera
--- NOTE | 2017-10-12 17:13 | ECG ---
Date Performed: 10/11/2017 Time Performed: 14:27:26 PTAGE: 82 years EKG: ATRIAL FIBRILLATION NONSPECIFIC ST & T-WAVE ABNORMALITY ABNORMAL ECG NO PREVIOUS TRACING DOCTOR: Jhon Garrido Interpretating Date/Time 10/12/2017 17:09:27
== END 2017-10-12 14:22 | disposition home or self-care (01) ==
LOC: NEPE 14:16 → NEDA 14:16 → NEPHCDU 14:16 → NEDA 19:29 → NEPHCDU 19:42
PROVIDERS: ADMIT Hospitalist; ATTEND Hospitalist